=== PATIENT | male | born 1985 | race Caucasian/White ===

== ENCOUNTER 2020-10-27 18:37 | Emergency (ER) | payer OTHER, SELFPAY ==
[2020-10-27 18:43] VITALS: BP 132/76; PULSE 80; RESP 16; TEMP 36.6; O2SAT 99
--- NOTE | 2020-10-27 22:06 | ED.GENADULT ---
HPI - General Adult General Chief complaint: Abdominal Pain Stated complaint: groin pain x1 day Time Seen by Provider: 10/27/20 22:06 Source: patient Mode of arrival: Ambulatory History of Present Illness HPI narrative: 34-year-old gentleman with no significant medical history [facility] increasing left-sided groin pain starting approximately 48 hours ago row and increasing. It is left groin radiating to the left scrotum he has noticed increased voiding recently and did have some pain after ejaculation. Pain was worse with walking is better with his leg and with lying flat. He had a normal bowel movement today without any blood in it. He is describing no fevers, cough, chills or other abdominal pain. Related Data Home Medications Medication Instructions Recorded Confirmed Vitamin B12 twice a week PO 10/27/20 10/27/20 vitamin D prescribed PO twice a PO 10/27/20 week Allergies Allergy/AdvReac Type Severity Reaction Status Date / Time No Known Drug Allergies Allergy Unverified 10/27/20 16:19 Review of Systems Review of Systems Narrative: Remainder of complete review of systems is otherwise unremarkable except for that included in the HPI. Exam Narrative Exam Narrative: General: Alert appropriate in no acute distress Respiratory: Able to speak in full sentences, no obvious respiratory distress Abdomen: Soft, nontender no suprapubic tenderness no flank pain Groin:, epididymis, perineal body or penile shaft. He is slightly tender over the superficial inguinal canal on the left and with standing and pressure a small hernia is palpated. There is no evidence of incarceration. Skin: No obvious rashes, warm and dry Neurologic: Grossly intact no obvious asymmetries or abnormalities Psych: appropriate insight and affect, cooperative Initial Vital Signs Initial Vital Signs: Vital Signs Temperature 97.9 F 10/27/20 18:43 Pulse Rate 80 10/27/20 18:43 Respiratory Rate 16 10/27/20 18:43 Blood Pressure 132/76 10/27/20 18:43 Pulse Oximetry 99 10/27/20 18:43 Course Vital Signs Vital signs: Vital Signs - 8 hr 10/27/20 18:43 Temperature 97.9 F Pulse Rate 80 Respiratory Rate 16 Blood Pressure 132/76 Pulse Oximetry 99 Medical Decision Making Lab Data Labs: Urine Dip Bedside Urine Glucose Negative Bedside Urine Bilirubin - Negative Bedside Urine Ketone - Negative Urine Specific [place] 1.030 Bedside Urine Occult Blood - Negative Bedside Urine pH 6.0 Bedside Urine Protein +/- 15 Bedside Urine Urobilinogen - Negative Bedside Urine Nitrite - Negative Bedside Urine Leukocytes - Negative Esterase Point of care testing: Urine Dip Bedside Urine Glucose Negative Bedside Urine Bilirubin - Negative Bedside Urine Ketone - Negative Urine Specific [place] 1.030 Bedside Urine Occult Blood - Negative Bedside Urine pH 6.0 Bedside Urine Protein +/- 15 Bedside Urine Urobilinogen - Negative Bedside Urine Nitrite - Negative Bedside Urine Leukocytes - Negative Esterase MDM Narrative Medical decision making narrative: 34-year-old gentleman with increasing left inguinal pain.At this time, there is no evidence of testicular torsion, epididymitis, prostatitis or incarcerated hernia. Small direct inguinal hernias palpable. Reassurance is given anticipated course of recovery and suggested follow-up reviewed. He is safe for home discharge Discharge Plan Departure Patient Disposition: Home Clinical Impression: Inguinal hernia Qualifiers: Obstruction and gangrene presence: with obstruction but without gangrene Laterality: unilateral Recurrence: not specified as recurrent Qualified Code(s): K40.30 - Unilateral inguinal hernia, with obstruction, without gangrene, not specified as recurrent Instructions: Groin Hernia -- Adult Activity Restrictions/Additional Instructions: Thank you for coming in today You do have a small left-sided inguinal hernia. This is what is causing your pain. Using 400 mg of ibuprofen (2 [id number] pills) and 1 Tylenol every 6 hours can be very helpful in controlling pain. Ice to the area, finding positions that are most comfortable, avoiding things that will cause you to strain or increase intra-abdominal pressure will help prevent pain. At this time, there is no evidence of testicular torsion, epididymitis, prostatitis or incarcerated hernia. If you find that you are having worsening pain, pain that is not relieved with resting or inability to have a bowel movement or noticing blood in your bowel movement, you need to come back for further evaluation When you get back to [place], you will need to follow-up with her primary care physician and consider consultation with a surgeon to decide if he would like to have this repaired or not. I hope you feel better quickly and I am sorry this is interrupting your honeymoon. Prescriptions: No Action vitamin D prescribed PO twice a week PO RF: 0 Vitamin B12 twice a week PO RF: 0 Referrals: Samra Segovia PA-C [Primary Care Provider] -
== END 2020-10-27 22:28 | disposition home or self-care (01) ==
PROVIDERS: Emergency Provider Emergency Medicine; PCP Physician Assistant
DX: K40.30 Unilateral inguinal hernia, with obstruction, without gangrene, not specified as recurrent (principal)
CPT/HCPCS: 81003; 99281; 99282